=== PATIENT | male | born 1945 | race Caucasian/White ===

== ENCOUNTER → 2017-05-17 | Day surgery (SDC) | payer OTHER ==
[~2017-05-17] MED LIST: ALLOPURINOL300 M1 PO; AMIODARONE HCL200 M2 PO; AMLODIPINE BESY10 M1 PO; CRESTOR40 M2 PO; CYCLOBENZAPRINE5 M2 PO; LEVOTHYROXINE125 MCG PO; METOPROLOL SUCC25 M1 PO; TRAMADOL HCL50 M1 PO; VALSARTAN-HCTZ1 EAC1 PO; XARELTO20 M2 PO
--- NOTE | 2017-05-17 12:58 | ED UPPER/LOWER EXTREMITY COMPL ---
History of Present Illness General Chief Complaint: Shoulder Injury Stated Complaint: SENT BY [facility] FOR DISLOCATED SHOULDER Source: patient, old records Exam Limitations: no limitations Vital Signs & Intake/Output Vital Signs & Intake/Output Vital Signs Date Time Temp Pulse Resp B/P B/P Pulse O2 O2 Flow FiO2 Mean Ox Delivery Rate 05/17 1606 99.0 76 18 136/64 97 Room Air 05/17 1437 99.3 83 20 130/80 97 Room Air 05/17 1408 98.6 90 18 142/79 99 Room Air 05/17 1407 99 Room Air 05/17 1223 98.0 111 18 113/81 95 Room Air Allergies Coded Allergies: No Known Allergies (05/17/17) Triage Note: PT SLIPPED AND FELL WHILE GETTING OUT OF TRUCK THIS PAST WEDNESDAY. WENT TO URGENT [facility]ARE ON [address] DR ARIEL ALCARAZ FOR XRAYS TODAY. SENT HERE TO LEFT SHOULDER DISLOCATION. Triage Nurses Notes Reviewed? yes Onset: Abrupt Duration: day(s): (5), constant Timing: recent history Severity: moderate Severity Numbers: 7 Pain/Injury Location: Left: Shoulder. Method of Injury: fall Modifying Factors: Worsens With: movement. Associated Symptoms: denies HPI: 71-year-old male with history of A. fib on xarelto presents sent in by urgent care status post fall 5 days ago onto his left shoulder and left elbow. He denies any is head when he fell. He had an outpatient x-ray performed that showed a left shoulder dislocation was sent to the ER. He denies any numbness or tingling. He has not taken anything for the pain there is no loss of consciousness during the fall there is no prodromal dizziness lightheadedness or headache neck or back pain. No chest pain or pain with inspiration pain nausea vomiting. (Twin Estrada) Reconcile Medications Allopurinol 300 MG TABLET 1 TAB PO DAILY GOUT (Reported) Amiodarone HCl 200 MG TABLET 1 TAB PO DAILY HEART (Reported) Amlodipine Besylate 10 MG TABLET 1 TAB PO DAILY HEART (Reported) Cyclobenzaprine HCl 5 MG TABLET 1 TAB PO TIDPRN PRN PAIN/SPASM Levothyroxine Sodium 125 MCG TABLET 1 TAB PO DAILY AC THYROID (Reported) Metoprolol Succinate 25 MG TAB 1 TAB PO DAILY HEART (Reported) Rivaroxaban (Xarelto) 20 MG TABLET 1 TAB PO DAILY BLOOD THINNER (Reported) with food Rosuvastatin Calcium (Crestor) 40 MG TABLET 1 TAB PO DAILY CHOLESTEROL ( Reported) Tramadol HCl 50 MG TABLET 1 TAB PO Q4-6P PRN PAIN Valsartan/Hydrochlorothiazide (Valsartan-Hctz 160-12.5 MG Tab) 160 MG-12.5 MG TABLET 1 TAB PO DAILY HEART (Reported) (Tejas Cates DO) Past History Travel History Traveled to [place] past 21 day No Medical History Any Pertinent Medical History? see below for history Cardiovascular: AFIB, hypertension Musculoskeletal: LEFT SHOULDER DISLOCATION Surgical History Surgical History: non-contributory Psychosocial History What is your primary language Beninese Tobacco Use: Never used Daily Tobacco Use Amount/Type: =< 4 Cigarettes daily ETOH Use: occasional use Illicit Drug Use: denies illicit drug use Family History Hx Contributory? No (Twin Estrada) Review of Systems Review of Systems Constitutional: Reports: see HPI. Comments Review of systems: See HPI, All other systems negative. Constitutional, no chills no fever, HEENT: no sore throat no congestion Cardiovascular: No chest pain Skin: no rashes, no change in skin Respiratory: No dyspnea no cough GI: No nausea no vomiting : No dysuria Muscle skeletal: joint pain, no back pain Neurologic: , no headache Heme/endocrine: No bruising Immunology: No lymphadenopathy (Twin Estrada) Physical Exam Physical Exam General Appearance: well developed/nourished Comments: Well-developed well-nourished patient in no apparent distress. HEENT: Atraumatic, extraocular motion intact Neck: Supple, FROM Back: FROM Cardiovascular: Regular rate and rhythms no murmurs rubs or gallops, Respiratory: Chest nontender.There were no bony deformities, no asymmetry. No respiratory distress. Patient speaking in full complete sentences. Breath sounds clear to auscultation bilaterally: NO W/R/R Shoulder: Noted deformity noted to the left upper extremity Elbow: Atraumatic/stable. FROM. nontender No laxity Upper arm/Forearm:ecchymosis noted to the medial aspect of the left arm. Nontender. No edema, 5 out of 5 cattle sticker strength noted to bilateral upper extremities Hand/Wrist: Atraumatic/stable. Skin intact. FROM Pulses: Normal/equal radial/ulnar pulseto the lue. Brisk cap refill Lower Extremities: full range of motion Neuro: awake, alert, and oriented to person, place and time. There were no obvious focal neurologic abnormalities. Skin: Warm & dry;No appreciable rash on exposed skin Psych: Mood affect normal, normal memory normal judgment. (Joseph AARON,Twin) Progress Differential Diagnosis: contusion, dislocation, DVT, fracture, sprain, tendon injury Plan of Care: Orders Procedure Date/time Status CT UPPER EXT WO IV CONTRAST 05/17 1931 Active FingerStick- Glucose 05/17 1607 Active Add-on Test (ER Only) 05/17 1541 Active Add-on Test (ER Only) 05/17 1505 Active EKG 05/17 1504 Active PARTIAL THROMBOPLASTIN TIME 05/17 1501 Complete PROTHROMBIN TIME 05/17 1501 Complete ETHANOL 05/17 1501 Complete TYPE & SCREEN (NOT X-MATCH) 05/17 1501 Complete COMPREHENSIVE METABOLIC PANEL 05/17 1447 Complete CBC WITHOUT DIFFERENTIAL 05/17 1447 Complete Intake & Output 05/17 1335 Active Durable Medical Equipment 05/17 1319 Active Discharge Patient 05/17 UNK Active Current Medications Sig/Karen Start time Last Medication Dose Stop Time Status Admin Dextrose 25 GM ONCE ONE 05/17 1345 CAN (Dextrose 50%) 05/17 1346 Hydromorphone HCl 0.5 MG ONCE ONE 05/17 1315 CAN (Dilaudid) 05/17 1316 Laboratory Tests 05/17/17 1501: Anion Gap 14, Estimated GFR 35 L, BUN/Creatinine Ratio 16.3, Glucose 119 H, Calcium 9.5, Total Bilirubin 0.7, AST 32, ALT 26, Alkaline Phosphatase 236 H, Total Protein 7.0, Albumin 3.9, Globulin 3.1, Albumin/Globulin Ratio 1.3, PT 11.2, INR 1.07, APTT 29, CBC w Diff NO MAN DIFF REQ, RBC 2.97 L, MCV 109.2 H, MCH 37.1 H, MCHC 34.0, RDW 14.5, MPV 6.5 L, Gran % 87.1 H, Lymphocytes % 6.5 L, Monocytes % 6.2, Eosinophils % 0.1, Basophils % 0.1, Absolute Granulocytes 7.5 H, Absolute Lymphocytes 0.6 L, Absolute Monocytes 0.5, Absolute Eosinophils 0, Absolute Basophils 0, Serum Alcohol < 10.0 X-ray was reviewed from outpatient earlier today case discussed with Dr. Cates CALL PLACED TO ORTHO AFTER 2 ATTEMPTS WITH MOD SEDATION UNSUCCESSFUL BY MYSELF AND DR CATES. [id number] [address] CATES SPOKE WITH DR CABEZAS-she will take the pt to the OR for closed reduction Diagnostic Imaging: Viewed by Me: Radiology Read, Ultrasound. Discussed w/RAD: Radiology Read, Ultrasound. Radiology Impression: PATIENT: CARL HOANG PRESENT AGE: 71 PATIENT ACCOUNT NO: [id number] : 46 LOCATION: C/OCC ORDERING PHYSICIAN: Lucy AARON SERVICE DATE: 05/17/17 EXAM TYPE: RAD - XRY-ELBOW 3 OR MORE VIEWS, L; XRY-OCC MED TECH COMPONENT; XRY-SHOULDER COMPLETE-LEFT EXAMINATION: XR ELBOW, LEFT XR SHOULDER, LEFT CLINICAL INFORMATION : Left shoulder pain, swelling and bruising after fall on 05/13/2017. Also, pain , swelling and bruising of elbow. COMPARISON: None TECHNIQUE: Left shoulder, 4 views Left elbow, 3 views FINDINGS: LEFT SHOULDER: Acromioclavicular joint degeneration as manifest by subarticular cystic change and osteophyte formation. Anteroinferior dislocation of humeral head which abuts the anteroinferior glenoid. Small, displaced bone fragments of the superolateral humeral head from the region of impaction injury (i.e., Hill-Sachs lesion). LEFT ELBOW: There is edema in subcutaneous tissues of the examined arm, elbow and forearm. Bones have normal alignment at the elbow (as seen on these lateral and oblique projections) . An AP view of the elbow is not provided. No evidence of fracture, subluxation or effusion at the elbow. Minimal osteophyte formation is observed at the elbow. IMPRESSION: 1. Anteroinferior dislocation at the glenohumeral joint. Impaction injury with small, displaced fragments of the superolateral humeral head. The Hill-Sachs groove of the humeral head appears to be locked in the glenoid rim. 2. No acute osseous injury at the elbow. DICTATED BY: Julian Parks MD DATE/ TIME DICTATED:05/17/171033 LEAD WELDER:KAVON DATE/TIME TRANSCRIBED: 05/17/171033 CONFIDENTIAL, DO NOT COPY WITHOUT APPROPRIATE AUTHORIZATION. < Electronically signed in Other Vendor System> SIGNED BY: Julian Parks MD 05/17/17 1044, PATIENT: CARL HOANG PRESENT AGE: 71 PATIENT ACCOUNT NO: [id number] : 46 LOCATION: [facility] ORDERING PHYSICIAN: Twin AARON SERVICE DATE: 05/17/171348 EXAM TYPE: RAD - XRY-SHOULDER COMPLETE-LEFT EXAMINATION: XR SHOULDER, LEFT CLINICAL INFORMATION: Post reduction shoulder dislocation COMPARISON: Left shoulder radiograph today, 9:58 AM TECHNIQUE: Two views of the left shoulder. FINDINGS: There is persistent anterior dislocation of the left shoulder unchanged since prior study. Hill- Sachs fracture of the superior lateral humeral head again noted. IMPRESSION: Persistent anterior dislocation of left shoulder. DICTATED BY: Cl Armenta MD DATE/TIME DICTATED:05/17/171458 LEAD WELDER:KAVON DATE/TIME TRANSCRIBED:05/17/171458 CONFIDENTIAL, DO NOT COPY WITHOUT APPROPRIATE AUTHORIZATION. <Electronically signed in Other Vendor System> SIGNED BY: Cl Armenta MD 05/17/17 1503, PATIENT: CARL HOANG PRESENT AGE: 71 PATIENT ACCOUNT NO: [id number] : 46 LOCATION: [facility] ORDERING PHYSICIAN: Twin AARON SERVICE DATE: 05/17/17-151 EXAM TYPE: US - US-UNILATERAL VENOUS DOPPLER EXAMINATION: US TRIPLEX UPPER EXTREMITY, LEFT CLINICAL INFORMATION: Evaluate for DVT COMPARISON: None TECHNIQUE: Color-flow triplex imaging with spectral analysis and compression Doppler were performed on the upper extremity. FINDINGS: Visualized left internal jugular vein, visualized subclavian vein, axillary vein, brachial vein, basilic vein and cephalic veins demonstrated patency. No evidence of venous thrombosis identified.. Mild edema/ cellulitis is noted in the medial aspect upper arm. IMPRESSION: No sonographic evidence of deep venous thrombosis involving the left upper extremity. DICTATED BY: Keyla Mg MD DATE/TIME DICTATED:05/17/171605 LEAD WELDER: KAVON DATE/TIME TRANSCRIBED:05/17/171605 CONFIDENTIAL, DO NOT COPY WITHOUT APPROPRIATE AUTHORIZATION. <Electronically signed in Other Vendor System> SIGNED BY: Keyla Mg MD 05/17/17 1612 (Joseph AARON,Twin) Departure Departure Disposition: STILL A PATIENT Condition: Stable Clinical Impression Primary Impression: Shoulder dislocation Departure Forms: Customer Survey General Discharge Information OR/GI Note Spoke With: Fish ARRIAZA,Priscilla ED Treatment Decision: CARL HOANG requires urgent operative management or an emergent procedure that cannot be performed in the Emergency Room setting. Transport To: [facility] (Twin Estrada) Departure Prescriptions: Current Visit Scripts Cyclobenzaprine HCl 1 TAB PO TIDPRN PRN PAIN/SPASM #15 TAB Tramadol HCl 1 TAB PO Q4-6P PRN PAIN #20 TAB Comments 05/17/17 Procedure note Reduction of LEFT shoulder. Under my direct supervision and moderate sedation left shoulder reduction was attempted with the etomidate and Dilaudid. Scapular rotation, traction countertraction, and external rotation were all performed. Postreduction film shows that the shoulder is still dislocated. The patient's shoulder is been out since according to the history, neurovascularly he is intact. Orthopedic consultation was obtained-the patient was taken to the OR for further care. (Tejas Cates DO) Procedures Joint Reduction Joint Reduction Site: shoulder (L) Conscious Sedation: conscious sedation, performed by other (DR CATES) Reduction Attempts: 2 Pre-Procedure NV Exam: Yes Post-Procedure NV Exam: Yes Post Joint Reduction Film: joint not reduced Progress: sling applied, unable to be reduced in ER room by myself and dr cates. pt neurovasc intact, us ordered to r/o dvt Procedural Sedation Sedation Type: moderate Indication: SHOULDER DISLOCATION Prior Complications: none ASA Classification: E Airway: normal anatomy Mallampati Classification: Class 1 Preparation: plan explained to patient, hospital consent signed, oximetry during procedure, capnometry during procedu, IV access obtained, suction immediately avail, director of cardiac cath lab used Sedation: etomidate Complications During/After Procedure: none Post Sedation Score: see sedation record I personally performed: procedure Intra-Service Time: 30 minutes or less (Twin Estrada) Critical Care Note Critical Care Note Critical Care Time: 30-74 min (Twin Estrada)
--- NOTE | 2017-05-17 15:03 | RADIOLOGY REPORT ---
EXAMINATION: XR SHOULDER, LEFT CLINICAL INFORMATION: Post reduction shoulder dislocation COMPARISON: Left shoulder radiograph today, 9:58 AM TECHNIQUE: Two views of the left shoulder. FINDINGS: There is persistent anterior dislocation of the left shoulder unchanged since prior study. Hill-Sachs fracture of the superior lateral humeral head again noted. IMPRESSION: Persistent anterior dislocation of left shoulder.
[2017-05-17 15:11] LABS: ABSOLUTE BASOPHIL COUNT 0 /CUMM (0.0-0.2); ABSOLUTE EOSINOPHIL COUNT 0 /CUMM (0.0-0.7); ABSOLUTE GRANULOCYTE CT 7.5 /CUMM (1.4-6.5); ABSOLUTE LYMPH COUNT 0.6 /CUMM (1.2-3.4); ABSOLUTE MONOCYTE COUNT 0.5 /CUMM (0.10-0.60); BASOPHIL % 0.1 % (0.0-2.0); EOSINOPHIL % 0.1 % (0-5); HEMATOCRIT 32.4 % (42-52); MEAN CORPUSCULAR HGB 37.1 PG (27.0-31.0); MEAN CORPUSCULAR VOLUME 109.2 FL (80.0-94.0); MEAN PLATELET VOLUME 6.5 FL (7.4-10.4); PLATELET COUNT 218 /CUMM (130-400); RBC DISTRIBUTION WIDTH 14.5 % (11.5-14.5); RED BLOOD CELL CT 2.97 /CUMM (4.70-6.10); WHITE BLOOD CELL COUNT 8.6 /CUMM (4.8-10.8)
[2017-05-17 15:22] LABS: PT 11.2 SEC (9.4-12.5); PTT 29 SEC (25-37)
[2017-05-17 15:23] LABS: GRANULOCYTE % 87.1 % (42.2-75.2)
--- NOTE | 2017-05-17 15:25 | Cons- Orthopedic ---
Daphney Sparks 05/17/17 1512: General Information and HPI Consulting Request Date of Consult: 05/17/17 Requested By: ED ATTENDING- DR. CHU Reason for Consult: LEFT SHOULDER DISLOCATION Source of Information: patient Exam Limitations: no limitations History of Present Illness: PT PRESENTS TO ED COMPLAINTS OF LEFT SHOULDER PAIN AND SWELLING. STATES THAT HE FELL ON 05/13 AND HIT HIS LEFT SHOULDER AND ELBOW. DENIES HITTING HIS HEAD, DENIES LOC. PT HAD PAIN BUT WAS ABLE TO SOMEWHAT MOVE HIS ARM SO HE DID NOT SEEEK MEDICAL TREATMENT. DENIES NUMBNESS OR TINGLING IN EXTREMITIES. HE STATES THAT HE DIDNT TAKE HIS HOME MEDS FOR "A FEW DAYS". DENIES FEVERS. DENIES CP/SOB. DENIES STOKES . DENIES N/V Allergies/Medications Allergies: Coded Allergies: No Known Allergies (05/17/17) Home Med List: Allopurinol 300 MG TABLET 1 TAB PO DAILY GOUT (Reported) Amiodarone HCl 200 MG TABLET 1 TAB PO DAILY HEART (Reported) Amlodipine Besylate 10 MG TABLET 1 TAB PO DAILY HEART (Reported) Levothyroxine Sodium 125 MCG TABLET 1 TAB PO DAILY AC THYROID (Reported) Metoprolol Succinate 25 MG TAB 1 TAB PO DAILY HEART (Reported) Rivaroxaban (Xarelto) 20 MG TABLET 1 TAB PO DAILY BLOOD THINNER (Reported) with food Rosuvastatin Calcium (Crestor) 40 MG TABLET 1 TAB PO DAILY CHOLESTEROL ( Reported) Valsartan/Hydrochlorothiazide (Valsartan-Hctz 160-12.5 MG Tab) 160 MG-12.5 MG TABLET 1 TAB PO DAILY HEART (Reported) Current Medications: Current Medications Sig/Karen Start time Last Medication Dose Route Stop Time Status Admin Dextrose 25 GM ONCE ONE 05/17 1345 CAN IV 05/17 1346 Etomidate 0 .STK-MED ONE 05/17 1333 DC IV Etomidate 8 MG ONCE ONE 05/17 1315 DC 05/17 IV 05/17 1316 1409 Hydromorphone HCl 0 .STK-MED ONE 05/17 1335 DC .ROUTE Hydromorphone HCl 0.5 MG ONCE ONE 05/17 1315 CAN IV 05/17 1316 Hydromorphone HCl 1 MG ONCE ONE 05/17 1315 DC 05/17 IV 05/17 1316 1409 Past History Medical History Cardiovascular: AFIB, hypertension Musculoskeletal: LEFT SHOULDER DISLOCATION Surgical History Pertinent Surgical History: non-contributory Psychosocial History ETOH Use: occasional use Illicit Drug Use: denies illicit drug use Review of Systems Review of Systems: PER HPI DENIES STOKES, SOB, CP, N/V, NUMBNESS TINGLING IN ARM Exam & Diagnostic Data Vital Signs and I&O Vital Signs Date Time Temp Pulse Resp B/P B/P Pulse O2 O2 Flow FiO2 Mean Ox Delivery Rate 05/17 1437 99.3 83 20 130/80 97 Room Air 05/17 1408 98.6 90 18 142/79 99 Room Air 05/17 1407 99 Room Air 05/17 1223 98.0 111 18 113/81 95 Room Air Intake & Output 05/17 1600 05/17 0800 05/17 0000 05/16 1600 05/16 0800 05/16 0000 Intake Total Output Total Balance Patient 200 lb Weight Weight Reported by Patient Measurement Method Physical Exam: GEN-AAX3, NAD HEENT- EMOI, MMM, POOR DENTITION, SMALL HEALING LACERATION OVER LEFT EYE ( ALTHOUGH PT DENIES HITTING HIS HEAD DURING THIS FALL) RESP-DECREASED BREATH SOUNDS BILATERALLY, CLEAR CARDIO-RRR ABD-ND, SOFT, NT EXT- LEFT UE VERY SWOLLEN AND WARM, ECCHYMOSIS OVER SHOULDER AND DOWN UPPER APM. 2+RADIAL PULSE BILATERALLY. GOOD CAPILLARY REFILL. DISTAL MOTOR AND SENSORY FUNCTION INTACT NO PEDAL EDEMA Last 24 Hours of Labs: Laboratory Tests 05/17 1501 Chemistry Sodium Pending Potassium Pending Chloride Pending Carbon Dioxide Pending Anion Gap Pending BUN Pending Creatinine Pending BUN/Creatinine Ratio Pending Glucose Pending Calcium Pending Total Bilirubin Pending AST Pending ALT Pending Alkaline Phosphatase Pending Total Protein Pending Albumin Pending Globulin Pending Albumin/Globulin Ratio Pending Coagulation PT Pending INR Pending APTT Pending Hematology CBC w Diff Pending WBC Pending RBC Pending Hgb Pending Hct Pending MCV Pending MCH Pending MCHC Pending RDW Pending Plt Count Pending MPV Pending Gran % Pending Lymphocytes % Pending Monocytes % Pending Eosinophils % Pending Basophils % Pending Absolute Granulocytes Pending Absolute Lymphocytes Pending Absolute Monocytes Pending Absolute Eosinophils Pending Absolute Basophils Pending Imaging Results: EXAM TYPE: RAD - XRY-SHOULDER COMPLETE-LEFT EXAMINATION: XR SHOULDER, LEFT CLINICAL INFORMATION: Post reduction shoulder dislocation COMPARISON: Left shoulder radiograph today, 9:58 AM TECHNIQUE: Two views of the left shoulder. FINDINGS: There is persistent anterior dislocation of the left shoulder unchanged since prior study. Hill-Sachs fracture of the superior lateral humeral head again noted. IMPRESSION: Persistent anterior dislocation of left shoulder. Assessment/Plan Assessment/Plan 71YO M SP FALL 4 DAYS AGO RESULTING IN LEFT SHOULDER ANTERIOR DISLOCATION. UNDERWENT MULTIPLE FAILED ATTEMPTS TO RELOCATE SHOULDER IN ED. DR CABEZAS PLANNING TO TAKE PT TO OR FOR MANIPULATION UNDER SEDATION REC EKG, TYPE AND SCREEN REC UPPER EXT DVT STUDY PT STATES HE STOPPED TAKING HIS HOME MEDS FOR SEVERAL DAYS NPO IVF AND PAIN MANAGEMENT Consult Acknowledgment - Thank you for your consult request. Fish ARRIAZA,Priscilla 05/17/171916: Assessment/Plan Consult Acknowledgment - Thank you for your consult request. Attending MD Review Statement Attending Statement Attending MD Statement: examined this patient, discuss w/resident/PA/ROAD PRODUCTION GENERAL MANAGER, agreed w/resident/PA/ROAD PRODUCTION GENERAL MANAGER, reviewed images Attending Assessment/Plan: 71yo LHD male presents for evaluation of left shoulder. 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 His co- workers brought him home; per patient's , he did not want to go to a doctor for further evaluation. He presented to Occupational Medicine this morning for evaluation; he was noted to have a left anterior-inferior shoulder dislocation. He was sent to the ER for further evaluation; a closed reduction was attempted but unsuccessful. Patient denies pain except when he tries to spot remover his arm. Per patient's , he drinks approximately one full bottle of wine per day. He is not a smoker. 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 Exam: Left upper extremity Ecchymosis to left shoulder and upper arm. Pain with attempted motion of left shoulder. 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 Small eschar over left olecranon; no active bleeding or drainage. SILT over LUE Palpable radial pulse left wrist. Plan for OR for attempted closed reduction of left anteroinferior shoulder dislocation. Consent obtained.
[2017-05-17 16:06] VITALS: BP 136/64
--- NOTE | 2017-05-17 16:12 | ULTRASOUND REPORT ---
EXAMINATION: US TRIPLEX UPPER EXTREMITY, LEFT CLINICAL INFORMATION: Evaluate for DVT COMPARISON: None TECHNIQUE: Color-flow triplex imaging with spectral analysis and compression Doppler were performed on the upper extremity. FINDINGS: Visualized left internal jugular vein, visualized subclavian vein, axillary vein, brachial vein, basilic vein and cephalic veins demonstrated patency. No evidence of venous thrombosis identified.. Mild edema/cellulitis is noted in the medial aspect upper arm. IMPRESSION: No sonographic evidence of deep venous thrombosis involving the left upper extremity.
--- NOTE | 2017-05-17 17:48 | RADIOLOGY REPORT ---
EXAMINATION: XR SHOULDER, LEFT CLINICAL INFORMATION: 71-year-old man post reduction. COMPARISON: 05/17/2017 radiographs TECHNIQUE: Three views of the left shoulder. FINDINGS: There is a persistent anterior dislocation of the left shoulder. A Hill-Sachs fracture deformity of the superior lateral humeral head is again noted. IMPRESSION: Persistent anterior dislocation of the left shoulder with a Hill-Sachs fracture deformity.
--- NOTE | 2017-05-17 19:35 | Operative Report ---
Operative/Inv Procedure Report Surgery Date: 05/17/17 Name of Procedure: Unsuccessful closed reduction of left shoulder dislocation Pre-Operative Diagnosis: Left kayden-inferior shoulder dislocation Post-Operative Diagnosis: Left kayden-inferior shoulder dislocation Estimated Blood Loss: none Surgeon/Outsole Caser: Priscilla Whitten MD (assistance from Dr. Damien Melgar and Dr. Erik Nielson) Anesthesia: general endotracheal tube IV Fluids: 1000mL Complications: Unsuccessful closed reduction of left shoulder Condition: Stable Operative/Procedure Note Note: INDICATION FOR PROCEDURE: Willie Marcelino is a 71 year old left-hand dominant male who presented with a left anterior-inferior shoulder dislocation. His injury occurred four days prior after he fell off the back of a truck at work. He did not seek medical attention until this morning, where x-rays showed the dislocation as well as a large Hill-Sachs deformity of the left humeral head. Closed reduction was attempted in the Emergency Department at [facility], but was unsuccessful. Mr. Marcelino was then taken to the operating room for attempted closed reduction under sedation. He denied pain in the arm except with attempted motion. OPERATIVE REPORT: Mr. Marcelino was met in the pre-operative area, where the planned procedure was reviewed and consent was obtained. The patient requested discharge home following attempted closed reduction. He was then taken into the Operating Room. He remained on the stretcher. A time-out procedure was performed and the injured extremity and planned procedure were reviewed. After the patient was induced under anesthesia, the left shoulder was manipulated using traction- countertraction and gentle rotation in an attempt to reduce the shoulder. This was unsuccessful. Several attempts were made using various techniques to reduce the shoulder. This did not prove successful. Additional paralysis was administered by anesthesia, however this did not assist with the reduction. X- rays were obtained in the operating room to verify lack of reduction. The patient was fully intubated by the anesthesia service. The patient was then turned prone onto the operating room table. Attempted reduction was performed in this position, however proved unsuccessful. This was verified using fluoroscopy. The patient was then repositioned supine, and extubated. He was taken from the operating room to the postanesthesia care unit in stable condition.
--- NOTE | 2017-05-17 20:35 | CT SCAN REPORT ---
EXAMINATION: CT UPPER EXTREMITY WITHOUT CONTRAST, left shoulder CLINICAL INFORMATION: Shoulder dislocation. Pain. COMPARISON: C-arm views left shoulder today. Plain film exam left shoulder today TECHNIQUE: Axial images are obtained through the shoulder. Coronal and sagittal reformatted images performed at the CT scanner. Also 3-D surface rendered images of the shoulder were performed at CT scanner. DLP: [id number]. mGy-cm FINDINGS: There is anterior dislocation of the glenohumeral joint. The humeral head has a Hill-Sachs deformity and is impacted into the inferior anterior glenoid rim. There are small bone fragments around the impaction. The humeral head there is sclerotic changes to the impacted fracture margins. There is fluid around the joint space. The acromioclavicular joint has subchondral cysts and small spurs from degenerative change. IMPRESSION: Anterior dislocation with large Hill-Sachs fracture deformity from impaction of the humeral head at the inferior acromion.
== END ==
LOC: ERH 11:22 → STS 16:35 → PACUH 16:36 → ERH 16:36 → PACUH 19:29 → ERH 19:29 → PACUH 20:20
PROVIDERS: Emergency Medicine
DX: S43.085A Other dislocation of left shoulder joint, initial encounter (principal); W17.89XA Other fall from one level to another, initial encounter; M79.622 Pain in left upper arm; R60.0 Localized edema; I48.91 Unspecified atrial fibrillation; Z79.01 Long term (current) use of anticoagulants
CPT/HCPCS: 73030-LT; 93005; 93010; 96374; 96375; 99291; G0480

== ENCOUNTER 2017-05-28 02:29 | Observation (INO) | payer OTHER ==
[~2017-05-28] VITALS: Ht 182.9 cm; Wt 91.6 kg
--- NOTE | 2017-05-28 14:13 | Operative Report ---
Operative/Inv Procedure Report Surgery Date: 05/28/17 Name of Procedure: Left reverse total shoulder arthroplasty Pre-Operative Diagnosis: Irreducible left shoulder dislocation Post-Operative Diagnosis: Irreducible left shoulder dislocation; left rotator cuff repair Estimated Blood Loss: 150mL Surgeon/Grated Cheese Maker: Fish ARRIAZA,Tejas Gonzalez MD Anesthesia: general endotracheal tube, block IV Fluids: 2200mL Implants: Tornier Reverse Total Shoulder System Glenoid baseplate 25mm Glenoid sphere 36mm Humeral Stem size 5B, 132.5 deg, coated Reverse tray +0mm, centered Reverse insert 36mm +6mm poly Drains: None Specimens: Left humeral head Complications: None Condition: Stable Operative/Procedure Note Note: INDICATION FOR PROCEDURE: Willie Marcelino is a 71 year-old left hand dominant male who sustained a left shoulder injury on 05/13/17 after a fall at work. He did not seek care for several days, but presented to Occup[facility] on 05/17/17, where xrays revealed an anterior shoulder dislocation. He was evaluated in the [facility] and a closed reduction was attempted but unsuccessful. He was taken to the Operating Room on 05/17/17 for attempted at closed reduction under anesthesia, but again this was unsuccessful. We discussed the treatment options, including open reduction vs reverse total shoulder arthroplasty. After obtaining advanced imaging and medical/cardiac evaluation and optimization, he opted to proceed with surgery to restore function of his dominant shoulder. OPERATIVE REPORT: Mr. Marcelino arrive at [facility] on 05/28/2017. He was met in the pre- operative area, where his medical history was reviewed and his operative extremity marked. A regional block was performed by the Anesthesia service. The patient was taken into the operating room and placed supine on the table. SCDs were applied to bilateral lower legs. A time-out was performed in which the patient, the operative extremity, and the planned procedure were reviewed. The patient was induced under general anesthesia and IV cefazolin was given for antibiotic prophylaxis. He was then placed in a modified beach chair position. Care was taken to pad all bony prominences and support the head in a neutral position. The left upper extremity was then prepped and draped in the usual sterile fashion. An incision was made over the anterior shoulder to approach the deltopectoral interval. The cephalic vein was immediately encountered and protected with lateral retraction. The conjoint tendon was under increased tension due to the dislocation. A self-retaining retractor was placed between the deltoid and pectoralis muscles. The fascia overlying the humeral head and neck was removed, and the upper border of the pectoralis tendon was released for improved exposure. The biceps tendon was identified and tenodesed to the upper pectoralis tendon with #2 Orthocord suture. The proximal tendon was cut and the bicipital groove opened. The subscapularis tendon insertion was attentuated with delamination; sutures were placed in the remaining tendon and used to retract the tendon. The circumflex vessels were not easily identified along the medial neck of the humerus; the capsule was carefully dissected off the neck and inferior humeral head with cautery, but the vessels were not intentionally ligated during this procedure. No bleeding was encountered. A Aleman was placed behind the humeral head in the Hill-Sachs deformity; the head was noted to be bald without supraspinatus or infraspinatus tissue. Arthritic changes over the humeral head were also noted, consisted with chronic rotator cuff injury. The humeral head was cut in-situ, following but preparation of the humeral canal for placed of the stem. A 20 deg version alissa was placed to assist with broaching. The humerus was easily reduced following removal of the head where it was locked on the anterior glenoid. The glenoid remained in good condition without fracture. The humeral was retracted posterior for glenoid exposure. A guide pin was placed in the center of the glenoid using an inferiorly positioned guide. Reamers were then placed over the pin to removal cartilage and prepare the glenoid for placement of the glenosphere. The central hole was drilled and the baseplate carefully impacted into position. Two compression screws were placed in the anterior and posterior plate with good purchase, followed by locking screw superior and inferior. All screws measured good lengths and obtained good purchase/fixation. The glenosphere was then impacted into place. The humerus was again dislocated anterior for further prepartion. A trial base- plate and poly liner were placed and the shoulder reduced. The deltoid and conjoint tendons were appropriately tensioned. The shoulder had excellent range of motion without evidence of instability. The shoulder did not easily dislocate. Once it was manually dislocated with substantial effort, the trials were removed. The shoulder was copiously irrigated with pulse lavage. Three 2.0mm drill holes were placed in the lesser tuberosity and #5 fiberwire was passed for repair of the subscapularis. The implanted stem and tray were assembled on the back table, then carefully impacted into the humerus in 20 deg of version using a alissa for verification. The poly was then tapped into position and the shoulder reduced. He again had good motion without evidence of instability. The shoulder was again irrigated. The #5 fiberwire sutures were passed through the subscapularis using a Jose Luis-Jb stitch and tied down to reapproximately the tendon to the lesser tuberosity. The shoulder was again irrigated. The deltopectoral interval was closed using three interrupted #2 orthocord stitches. The incision was then closed in layers using 0 vicryl, 2-0 vicryl, and running 3-0 prolene for skin. The incision was reinforced with steri-strips and covered with gauze and an ABD pad, which was secured with foam tape. The draped were removed and the left arm placed in a sling. The patient was repositioned supine on the table and extubated. He was then taken from the OR to the recovery room in stable condition.
--- NOTE | 2017-05-28 15:18 | RADIOLOGY REPORT ---
EXAMINATION: XR SHOULDER, LEFT CLINICAL INFORMATION: Postop shoulder surgery. COMPARISON: None TECHNIQUE: AP portable view of the left shoulder. FINDINGS: Standard AP view post reverse shoulder arthroplasty. Alignment is difficult to assess on a single AP projection. IMPRESSION: Postsurgical changes with no acute fracture. Alignment is grossly normal on this single AP view.
[2017-05-28 16:23] VITALS: BP 102/62
--- NOTE | 2017-05-28 17:10 | Patient Discharge Instructions ---
Discharge Instructions General Discharge Information You were seen/treated for: Irreducible left shoulder dislocation; left rotator cuff repair You had these procedures: Surgery Date: 05/28/17 Name of Procedure: Left reverse total shoulder arthroplasty Watch for these problems: fever>101.3, increased pain, redness/swelling/drainage, dizziness, shortness of breath, chest pains Call Surgeon to remove: Stitches Other wound care: keep incisions clean & dry. dressing changes as directed. Special Instructions: Wear sling at all times, even to sleep at night. May take sling off to shower only. No external rotation or extension of shoulder. Keep shoulder in neutral or internally rotated postion Diet Continue normal diet: Yes Recommended Diet: Regular Activity Full Activity/No Limits: No Activity Self Limited: Yes Acute Coronary Syndrome Inclusion Criteria At DC or during hospital stay patient has or had the following: ACS DIAGNOSIS No Discharge Core Measures Meds if any: Prescribed or Continued at Discharge Meds if any: NOT Prescribed or Continued at Discharge Congestive Heart Failure Inclusion Criteria At DC or during hospital stay patient has or had the following: CHF DIAGNOSIS No Discharge Core Measures Meds if any: Prescribed or Continued at Discharge Meds if any: NOT Prescribed or Continued at Discharge Cerebrovascular accident Inclusion Criteria At DC or during hospital stay patient has or had the following: CVA/TIA Diagnosis No Discharge Core Measures Meds if any: Prescribed or Continued at Discharge Meds if any: NOT Prescribed or Continued at Discharge Venous thromboembolism Inclusion Criteria VTE Diagnosis No VTE Type NONE VTE Confirmed by (Test) NONE Discharge Core Measures - Per Current guidelines, there needs to be overlap - treatment for the first 5 days of Warfarin therapy. - If discharged on Warfarin prior to 5 days of - overlap therapy, the patient will need to be - assessed for post discharge needs including - *Post discharge parental anticoagulation - *Warfarin and/or parental anticoagulation education - *Follow up date to check INR post discharge At least 5 days overlap therapy as Inpatient No Meds if any: Prescribed or Continued at Discharge Note: Overlap Therapy is Warfarin and Anticoagulant Meds if any: NOT Prescribed or Continued at Discharge
--- NOTE | 2017-05-28 17:13 | Surg Short-stay <48hrs Dis Sum ---
Visit Information Visit Dates Admission Date: 05/28/17 Discharge Date: 05/29/17 Surgical Short Stay DC Summary Admission Diagnosis: Irreducible left shoulder dislocation; left rotator cuff tear Final Diagnosis: same as above, s/p left reverse total shoulder arthroplasty Acute on chronic kidney injury Procedure(s): Surgery Date: 05/28/17 Name of Procedure: Left reverse total shoulder arthroplasty Summary/Significant Findings: Electively scheduled left reverse total shoulder arthroplasty on 05/28/17 by , for history of irreducible left shoulder dislocation and left rotator cuff repair. Remained in the hospital overnight in observation status for pain control and neurovascular checks. Pain control transitioned from IV to oral medications. Hospital course complicated by acute on chronic kidney injury on POD 1 likely due to dehydration. He recieved IVF fluids and his xarelto dosage was decreased from 20 mg to 15 mg daily. He was instructed to take 15 mg daily and follow up with his rotary drier, Dr. Seals to repeat labs. He is stable for discharge at this time. Remainder of hospital course was uneventful. Condition at Discharge: stable Discharge Disposition: home or self care Discharge instructions provided to patient/family: Yes Post discharge follow-up plan: Follow up with next week Follow up with rotary drier, Dr. Seals Copies to: Aamir ARRIAZA,Carlito Hall; Arnel ARRIAZA,Richmond Sheldon
[2017-05-28] MEDS ORDERED: DOCUSATE SODIU100 M3 PO (17:15)
[2017-05-28] MEDS ORDERED: PERCOCET 5-3251 EACH PO (17:15)
--- NOTE | 2017-05-28 17:41 | PN- Orthopedic ---
Subjective Subjective: POST-OP NOTE No complaints. Denies pain. Tolerating clears. No nausea. Not yet out of bed. Due to void tonight. Objective Vital Signs and I&Os Vital Signs Date Time Temp Pulse Resp B/P B/P Pulse O2 O2 Flow FiO2 Mean Ox Delivery Rate 05/28 1623 98.0 59 18 102/62 92 Room Air Intake & Output 05/28 1600 05/28 0800 05/28 0000 05/27 1600 05/27 0800 05/27 0000 Intake Total Output Total Balance Patient 202 lb Weight Physical Exam: General - alert & oriented x 3. comfortable. no acute distress. Lungs - clear bilaterally. no w/r/r. Cardiac - s1s2 Abdomen - soft. nontender. Extremities - left shoulder dressing c/d/i. cool stafford ice device turned on and connected to unit. arm in sling. nvi. calves soft and nontender b/l. athrombics in place. Current Medications: Current Medications Sig/Karen Start time Last Medication Dose Route Stop Time Status Admin Acetaminophen 1,000 MG .STK-MED ONE 05/28 914 DC IV 05/28 0916 Allopurinol 300 MG DAILY 05/29 1000 DC PO Amiodarone HCl 200 MG DAILY 05/29 1000 DC PO Amlodipine Besylate 10 MG DAILY 05/29 1000 DC PO Atorvastatin Calcium 80 MG 1700 05/28 1700 DC PO Cefazolin Sodium 2 GM Q8H 05/28 2000 AC N/A 1 UNIT IV 05/29 0429 Cefazolin Sodium 2,000 MG ONCE 05/28 0000 DC IV 05/28 2359 Docusate Sodium 100 MG BID 05/28 2200 AC PO Fentanyl Citrate 300 MCG .STK-MED ONE 05/28 913 DC IM 05/28 0915 Heparin Sodium 5,000 UNIT Q8 05/28 2200 AC (Porcine) SC 05/28 2201 Hydrochlorothiazide 12.5 MG DAILY 05/29 1000 AC PO Levothyroxine Sodium 0.125 MG DAILY AC 05/29 0700 DC PO Losartan Potassium 50 MG DAILY 05/29 1000 DC PO Metoprolol Succinate 25 MG DAILY 05/29 1000 DC PO Midazolam HCl 4 MG .STK-MED ONE 05/28 913 DC IM 05/28 09 Morphine Sulfate 2 MG Q4P PRN 05/28 1645 AC IV Oxycodone HCl 5 MG Q4 HRS NEEDED PRN 05/28 1645 AC PO Oxycodone HCl 10 MG Q4 HRS NEEDED PRN 05/28 1645 AC PO Rivaroxaban 20 MG DAILY 05/29 1000 DC PO Assessment/Plan Assessment/Plan This 71 year old male with hx htn, afib, gout, who is POD#0 s/p left reverse total shoulder arthroplasty for irreducible left shoulder dislocation, and rotator cuff repair placed in observation status overnight given anticipated discharge to home in the morning advance diet as tolerated hep sc x 1 tonight, to resume xarelto in the morning OT eval in the morning cool stafford device in place, ?specific instructions, to clarify with due to void tonight roscoe-operative ancef x 2 doses home meds restarted transition pain medication from iv to oral medication as able will d/w Core Measures Venous Thromboembolism VTE Risk Factors Surgery No Mechanical VTE Prophylaxis d/t N/A MechProphylax Ordered No VTE Pharm Prophylaxis d/t NA PharmProphylax ordered
[2017-05-28 22:49] VITALS: BP 112/60
[2017-05-29 02:00] VITALS: BP 114/76
[2017-05-29 02:30] VITALS: BP 114/76
[2017-05-29 06:00] VITALS: BP 110/70
--- NOTE | 2017-05-29 07:22 | PN- Orthopedic ---
See Addendum Subjective Subjective: Pain controlled. Tolerating a diet. Voiding spontanously. No complaints. Denies c/p, sob, n/v/f/c. Eager to go home this morning. Objective Vital Signs and I&Os Vital Signs Date Time Temp Pulse Resp B/P B/P Pulse O2 O2 Flow FiO2 Mean Ox Delivery Rate 05/29 0600 97.5 65 20 110/70 94 Room Air 05/29 0230 98.5 70 20 114/76 93 Room Air 05/28 2249 97.9 65 20 112/60 93 Room Air 05/28 1623 98.0 59 18 102/62 92 Room Air Intake & Output 05/29 0800 05/29 0000 05/28 1600 05/28 0800 05/28 0000 05/27 1600 Intake Total 220 Output Total 200 Balance -200 220 Intake, Oral 220 Output, Urine 200 Patient 202 lb 202 lb Weight Physical Exam: Gen - NAD Cardiac - S1S2 noted Lungs - CTAB Ext - L arm in sling with cool rish device in place, dressing c/d/i, pulses present, motor an sensation intact. Assessment/Plan Assessment/Plan 71 M with hx htn, afib and gout who is POD 1 s/p left reverse total shoulder arthroplasty for irreducible left shoulder dislocation and rotator cuff repair who is recovering well Reg diet OT eval Keep in sling, no shoulder extension/external rotation Pain meds prn Keep cool stafford device in place Resume home meds, including xarelto this morning F/u labs Cont observation status and anticipate d/c this morning D/c meds/instructions explained in detail Will d/w Dr. Whitten Core Measures Venous Thromboembolism VTE Risk Factors Surgery No Mechanical VTE Prophylaxis d/t N/A MechProphylax Ordered No VTE Pharm Prophylaxis d/t NA PharmProphylax ordered
[2017-05-29 08:44] LABS: ABSOLUTE BASOPHIL COUNT 0 /CUMM (0.0-0.2); ABSOLUTE EOSINOPHIL COUNT 0 /CUMM (0.0-0.7); ABSOLUTE GRANULOCYTE CT 9.1 /CUMM (1.4-6.5); ABSOLUTE LYMPH COUNT 0.8 /CUMM (1.2-3.4); ABSOLUTE MONOCYTE COUNT 0.8 /CUMM (0.10-0.60); BASOPHIL % 0.2 % (0.0-2.0); EOSINOPHIL % 0 % (0-5); HEMATOCRIT 28.1 % (42-52); MEAN CORPUSCULAR HGB 36.6 PG (27.0-31.0); MEAN CORPUSCULAR HGB CONC 33.6 G/DL (33.0-37.0); MEAN CORPUSCULAR VOLUME 108.9 FL (80.0-94.0); MEAN PLATELET VOLUME 6.9 FL (7.4-10.4); PLATELET COUNT 411 /CUMM (130-400); RBC DISTRIBUTION WIDTH 13.9 % (11.5-14.5); RED BLOOD CELL CT 2.59 /CUMM (4.70-6.10); WHITE BLOOD CELL COUNT 10.8 /CUMM (4.8-10.8)
[2017-05-29 10:39] LABS: GRANULOCYTE % 84.8 % (42.2-75.2)
[2017-05-29 14:36] VITALS: BP 106/66
[2017-05-29] MEDS ORDERED: DOCUSATE SODIU100 M3 PO (18:14)
[2017-05-29] MEDS ORDERED: PERCOCET 5-3251 EACH PO (18:14)
[2017-05-29] MEDS ORDERED: XARELTO15 M1 PO (18:14)
== END 2017-05-29 19:20 ==
LOC: STS 02:29 → PACUH 14:12 → ENRESERV 14:55 → ENTRNSPT 16:09 → EDTRNSPTSTS 16:12 → EDTRNSPT 16:12 → CMPTRNSPT 16:28 → 2NA 16:38 → ENTRNSPT 05-29 19:17 → 2NA 05-29 19:20 → EDTRNSPTSTS 05-29 19:34 → EDTRNSPT 05-29 19:34 → CMPTRNSPT 05-29 19:51
PROVIDERS: Physician Assistant Surgical
DX: S43.015A Anterior dislocation of left humerus, initial encounter (principal); S46.012A Strain of muscle(s) and tendon(s) of the rotator cuff of left shoulder, initial encounter; W19.XXXA Unspecified fall, initial encounter; I48.91 Unspecified atrial fibrillation; Z79.01 Long term (current) use of anticoagulants; I10 Essential (primary) hypertension; E03.9 Hypothyroidism, unspecified; E78.5 Hyperlipidemia, unspecified; Z87.891 Personal history of nicotine dependence
CPT/HCPCS: 36592; 73030-LT; 82436; 88305; G0378; J0131; J0690; J1644; J3490